=== PATIENT | female | born 1970 | race Hispanic/Latino ===

== ENCOUNTER 2021-06-22 21:51 | Emergency (ER) | payer BC ==
--- NOTE | 2021-06-23 00:22 | ER ---
Nurse's Notes [facility] Name: Cuca Bennett Age: 50 yrs Sex: Female : 1970 Arrival Date: 06/22/2021 Time: 21:58 Bed DIS1 Private MD: Diagnosis: Facial Cellulitis Presentation: 06/22 22:20 Chief complaint: Patient states: Last week I began noticing a lump under my chin. It ld1 has progressively gotten worse and spread to my face. Pt has visible sores to skin around mouth and chin. Coronavirus screen: At this time, the client does not indicate any symptoms associated with coronavirus-19. Ebola Screen: No symptoms or risks identified at this time. Initial Sepsis Screen: Does the patient meet any 2 criteria? No. Patient's initial sepsis screen is negative. Does the patient have a suspected source of infection? No. Patient's initial sepsis screen is negative. Risk Assessment: Do you want to hurt yourself or someone else? Patient reports no desire to harm self or others. Onset of symptoms was June 22, 2021. 22:20 Method Of Arrival: Ambulatory ld1 22:20 Acuity: CRISTINA 4 ld1 Triage Assessment: 22:22 General: Appears in no apparent distress. comfortable, Behavior is calm, cooperative, ld1 appropriate for age. Pain: Denies pain. Neuro: Level of Consciousness is awake, alert, obeys commands, Oriented to person, place, time, situation. Respiratory: Airway is patent Respiratory effort is even, unlabored, Respiratory pattern is regular, symmetrical. 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 - Social history:: Smoking status: Patient denies any tobacco usage or history of. Patient/guardian denies using alcohol. Screenin/06 00:33 Abuse screen: Denies threats or abuse. Nutritional screening: No deficits noted. ld1 Tuberculosis screening: No symptoms or risk factors identified. Fall Risk None identified. Assessment: 00:34 General: Appears in no apparent distress. Behavior is calm, cooperative, appropriate ld1 for age. Pain: Complains of pain in right side of chin Pain does not radiate. Pain currently is 3 out of 10 on a pain scale. Quality of pain is described as pressure, sharp. Neuro: No deficits noted. Cardiovascular: No deficits noted. Respiratory: No deficits noted. Derm: Skin Wound noted right side of chin. Vital Signs: 06/22 22:20 BP 149 / 88; Pulse 76; Resp 18; Temp 97.5(TE); Pulse Ox 96% on R/A; Weight 107.5 kg; ld1 Height 5 ft. 0 in. (152.40 cm); Pain 0/10; 06/23 00:36 BP 147 / 69; Pulse 80; Resp 16; Temp 97.8; Pulse Ox 97% ; lt3 06/22 22:20 Body Mass Index 46.29 (107.50 kg, 152.40 cm) ld1 ED Course: 06/22 21:58 Patient arrived in ED. wm 22:22 Triage completed. ld1 22:22 Arm band placed on right wrist. ld1 23:25 Nicola Maher PA is PHCP. guille 23:25 Dandy Isabel MD is Attending Physician. guille 06/23 00:33 Patient has correct armband on for positive identification. ld1 00:33 No provider procedures requiring assistance completed. Patient did not have IV access ld1 during this emergency room visit. Administered Medications: 00:33 Drug: Augmentin (Amoxicillin-Clavulanate) 875 mg Route: PO; ld1 00:36 Follow up: Response: No adverse reaction ld1 00:33 Drug: Bactrim (trimethoprim-sulfamethoxazole) (160 mg-800 mg (DS) 1 tablet Route: PO; ld1 00:36 Follow up: Response: No adverse reaction ld1 Outcome: 00:21 Discharge ordered by . guille 00:33 Discharged to home ambulatory. ld1 00:33 Condition: good 00:44 Discharge instructions given to patient, Instructed on discharge instructions, follow ld1 up and referral plans. medication usage, Demonstrated understanding of instructions, medications, Prescriptions given X 2. 00:44 Patient left the ED. ld1 Signatures: Nicola Maher PA PA jmm Dibbern, Lauren, RN RN ld1 Veda Pappas Leah lt3 Corrections: (The following items were deleted from the chart) 06/22 22:22 Home Meds: None; ld1 ld1 22:22 PMHx: None; ld1 ld1
--- NOTE | 2021-06-23 00:22 | EDPHYS ---
Physician Documentation [facility] Name: Cuca Bennett Age: 50 yrs Sex: Female : 1970 Arrival Date: 06/22/2021 Time: 21:58 Bed DIS1 Private MD: ED Physician Dandy Isabel HPI: 06/23 00:16 This 50 yrs old Female presents to ER via Ambulatory with complaints of Skin jmm Sore(s). 00:16 Onset: The symptoms/episode began/occurred gradually. Possible cause(s): unknown. jmm Associated signs and symptoms: Pertinent positives: erythema, swelling. This is a 50-year-old female with history of hypertension that presents emerged part with complaints of sores to her face which began earlier this week. Patient went to her PCP and was prescribed cephalexin which is not helped symptoms. Denies fever. . [employer]ER: 06/22 22:22 LMP N/A - control method ld1 Historical: - Allergies: 22:22 No Known Allergies; ld1 - Home Meds: 22:22 losartan oral [Active]; ld1 - PMHx: 22:22 Hypertensive disorder; ld1 - PSHx: 22:22 None; ld1 - Immunization history:: Adult Immunizations up to date, Client reports having NOT received the Covid vaccine. - Social history:: Smoking status: Patient denies any tobacco usage or history of. Patient/guardian denies using alcohol. ROS: 06/23 00:16 Constitutional: Negative for fever, chills, and weight loss, Cardiovascular: Negative jmm for chest pain, palpitations, and edema, Respiratory: Negative for shortness of breath, cough, wheezing, and pleuritic chest pain. Skin: Positive for erythema. All other systems are negative. Exam: 00:16 Constitutional: This is a well developed, well nourished patient who is awake, alert, jmm and in no acute distress. 00:16 Eyes: EOMI, no conjunctival erythema appreciated ENT: Moist Mucus Membranes Neck: Trachea midline, Supple Chest/axilla: Normal chest wall appearance and motion. Cardiovascular: Regular rate and rhythm. No edema appreciated Respiratory: Normal respirations, no respiratory distress appreciated Abdomen/GI: Non distended, soft Back: Normal ROM 00:16 Head/face: Erythematous lesions with crusting noted to the chin and the right lower lip. 00:16 Skin: Erythematous lesions noted to the chin and right lower lip with crusting. 00:16 Neuro: Motor: is normal. 00:16 Psych: Behavior/mood is pleasant, cooperative. Vital Signs: 06/22 22:20 BP 149 / 88; Pulse 76; Resp 18; Temp 97.5(TE); Pulse Ox 96% on R/A; Weight 107.5 kg; ld1 Height 5 ft. 0 in. (152.40 cm); Pain 0/10; 06/23 00:36 BP 147 / 69; Pulse 80; Resp 16; Temp 97.8; Pulse Ox 97% ; lt3 06/22 22:20 Body Mass Index 46.29 (107.50 kg, 152.40 cm) ld1 MDM: 00:[address] [facility] 00:20 Data reviewed: vital signs, nurses notes. Counseling: I had a detailed discussion with nabeel the patient and/or guardian regarding: the historical points, exam findings, and any diagnostic results supporting the discharge/admit diagnosis, the need for outpatient follow up, to return to the emergency department if symptoms worsen or persist or if there are any questions or concerns that arise at home. ED course: Patient is alert and nontoxic in appearance in the ED. Physical exam findings appear consistent with MRSA/cellulitis. Will treat with oral antibiotics and otherwise given strict return precautions. Patient understood agrees to plan of care.. Administered Medications: 00:33 Drug: Augmentin (Amoxicillin-Clavulanate) 875 mg Route: PO; ld1 00:36 Follow up: Response: No adverse reaction ld1 00:33 Drug: Bactrim (trimethoprim-sulfamethoxazole) (160 mg-800 mg (DS) 1 tablet Route: PO; ld1 00:36 Follow up: Response: No adverse reaction ld1 Disposition: 02:02 Co-signature as Attending Physician, Dandy Isabel MD. pkl Disposition Summary: 06/23/21 00:21 Discharge Ordered Location: Home [facility] Condition: Stable guille Diagnosis - Facial Cellulitis guille Followup: nabeel - With: Private Physician - When: 2 - 3 days - Reason: Recheck today's complaints, Continuance of care, Re-evaluation by your physician Discharge Instructions: - Discharge Summary Sheet [facility] - Cellulitis, Adult [facility] Forms: - Medication Reconciliation Form [facility] - Thank You Letter [facility] - Antibiotic Education [facility] - Prescription Opioid Use [facility] Prescriptions: - Augmentin 875-125 mg Oral Tablet - take 1 tablet by ORAL route every 12 hours for 10 days; 20 tablet; Refills: 0, [facility] Product Selection Permitted - Bactrim DS 800-160 mg Oral Tablet - take 1 tablet by ORAL route every 12 hours for 10 days; 20 tablet; Refills: 0, [facility] Product Selection Permitted Signatures: Dandy Isabel MD MD pkNicola Dobson PA PA jmm Dibbern, Lauren RN RN ld1 Corrections: (The following items were deleted from the chart) 06/22 22:23 22:22 Home Meds: None; ld1 ld 22:23 22:22 PMHx: None; ld1 ld1
[2021-06-23] MEDS ORDERED: AMOX/K CLAV 875 MG TAB ONE (00:32)
[2021-06-23] MEDS ORDERED: SMZ./TMP. 800/160 MG TABLET ONE (00:32)
[2021-06-23 01:10] VITALS: BP 147/69; TEMP 97.8; O2SAT 97
== END 2021-06-23 00:44 | disposition home or self-care (01) ==
LOC: ER 21:51
DX: L03.211 Cellulitis of face (principal); I10 Essential (primary) hypertension
CPT/HCPCS: 99283